=== PATIENT | male | born 1940 | race African-American/Black ===

== ENCOUNTER 2025-01-07 12:57 | Outpatient (RCR) | payer OTHER, MEDICARE, SELFPAY | END 2025-01-07 23:59 | disposition home or self-care (01) | LOC: RPT 12:57 | PROVIDERS: ATTENDING PHYSICIAN Orthopaedic Surgery; FAMILY PHYSICIAN Nurse Practitioner Family | DX: R26.9 Unspecified abnormalities of gait and mobility (principal); Z96.651 Presence of right artificial knee joint; Z73.6 Limitation of activities due to disability | CPT/HCPCS: 97010; 97110; 97116; 97162; 97530 ==

== ENCOUNTER 2025-02-07 13:51 | Outpatient (RCR) | payer OTHER, MEDICARE, SELFPAY | END 2025-02-07 23:59 | disposition home or self-care (01) | LOC: RPT 13:51 | PROVIDERS: ATTENDING PHYSICIAN Orthopaedic Surgery; FAMILY PHYSICIAN Nurse Practitioner Family | DX: R26.9 Unspecified abnormalities of gait and mobility (principal); Z47.1 Aftercare following joint replacement surgery (principal); R26.2 Difficulty in walking, not elsewhere classified; Z96.651 Presence of right artificial knee joint; M62.81 Muscle weakness (generalized); Z73.6 Limitation of activities due to disability; M25.561 Pain in right knee; M25.562 Pain in left knee; R26.89 Other abnormalities of gait and mobility | CPT/HCPCS: 97010; 97110; 97140; 97530 ==

== ENCOUNTER 2025-02-23 08:31 | Outpatient (RCR) | payer OTHER, MEDICARE, SELFPAY | END 2025-02-23 23:59 | disposition home or self-care (01) | LOC: RPT 08:31 | PROVIDERS: ATTENDING PHYSICIAN Orthopaedic Surgery; FAMILY PHYSICIAN Nurse Practitioner Family | DX: Z47.1 Aftercare following joint replacement surgery (principal); R26.2 Difficulty in walking, not elsewhere classified; M62.81 Muscle weakness (generalized); Z73.6 Limitation of activities due to disability; M25.561 Pain in right knee; M25.562 Pain in left knee; R26.89 Other abnormalities of gait and mobility; Z96.651 Presence of right artificial knee joint; R26.9 Unspecified abnormalities of gait and mobility | CPT/HCPCS: 97110; 97140; 97530 ==

== ENCOUNTER → 2025-03-25 10:06 | Outpatient (REF) | payer MEDICARE, OTHER, SELFPAY ==
[2025-03-25 11:13] LABS: Hematocrit 33.4 % (39.0-52.0); Hemoglobin 11.0 g/dL (13.0-18.0); Mean Corp Hgb Conc. 32.9 g/dL (33.0-37.0); Mean Corpuscular Volume 90.5 fL (80.0-94.0); Nucleated Red Blood Cells % 0 % (-); Platelet Count 238 10^3/uL (130-400); Red Cell Dist. Width 14.8 % (11.5-14.5)
[2025-03-25 11:17] LABS: Urine Character Clear (Clear)
[2025-03-25 11:59] LABS: ALT (SGPT) 15 U/L (0-50); AST (SGOT) 21 U/L (17-59); Albumin 4.2 g/dl (3.5-5.0); Alkaline Phosphatase 62 U/L (38-126); Blood Urea Nitrogen 16 mg/dl (9-20); Calcium 9.4 mg/dl (8.4-10.2); Carbon Dioxide 28 mmol/L (22-30); Chloride 105 mmol/L (98-107); Glucose 82 mg/dl (70-99); HDL Cholesterol 45 mg/dl; LDL Cholesterol, Calculated 90 mg/dl; Potassium 4.7 mmol/L (3.5-5.1); Sodium 140 mmol/L (135-145); Total Protein 7.3 g/dl (6.3-8.2); Very Low Density Lipoprotein 20 mg/dl (0-30); eGFR > 60.00
[2025-03-25 12:06] LABS: Urine Red Blood Cell 0-2 /HPF (0-2); Urine Squamous Cell 0-2 /LPF (Few); Urine White Cell 0-2 /HPF (0-5)
[2025-03-25 12:35] LABS: PSA, Total - Screen 16.60 ng/ml (0.0-4.0)
== END ==
LOC: REG 10:06
PROVIDERS: ATTENDING PHYSICIAN Nurse Practitioner Family
DX: Z13.0 Encounter for screening for diseases of the blood and blood-forming organs and certain disorders involving the immune mechanism (principal); Z13.1 Encounter for screening for diabetes mellitus; Z13.89 Encounter for screening for other disorder; E78.2 Mixed hyperlipidemia; Z12.5 Encounter for screening for malignant neoplasm of prostate
CPT/HCPCS: 36415; 80053; 80061; 81003; 81015; 85025; G0103

== ENCOUNTER → 2025-04-30 08:57 | Outpatient (REF) | payer MEDICARE, OTHER, SELFPAY | LOC: MRI 3T 08:57 | PROVIDERS: ATTENDING PHYSICIAN Student in an Organized Health Care Education/Training Program; FAMILY PHYSICIAN Nurse Practitioner Family | DX: R97.20 Elevated prostate specific antigen [PSA] (principal) | CPT/HCPCS: 72197; A9575 ==